=== PATIENT | female | born 1965 | race Caucasian/White ===

== ENCOUNTER 2017-01-12 11:36 | Emergency (ER) | payer OTHER ==
--- NOTE | 2017-01-12 11:59 | PHYS DOC ---
General Chief Complaint: ANKLE PROBLEM Stated Complaint: RT ANKLE PAIN Time Seen by MD: 11:44 Source: patient Exam Limitations: no limitations Problems: History of Present Illness Initial Comments Pt is 51/F to ED for work comp injury. 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 She complains of right ankle pain/swelling. No numbness/tingling/weakness/radiating sx. Onset: this morning Severity: moderate Pain/Injury Location: right ankle Method of Injury: fell, twisted Modifying Factors: worse with jarring, worse with movement, improves with rest Allergies: Coded Allergies: No Known Drug Allergies (Unverified , 01/12/17) Past Medical History Medical History: no pertinent history Surgical History: noncontributory Social History Smoker: non-smoker Alcohol: none Drugs: none Review of Systems Constitutional: denies chills, denies diaphoresis, denies fever Respiratory: denies cough, denies shortness of breath Cardiovascular: denies chest pain, denies palpitations Gastrointestinal: denies nausea, denies vomiting Musculoskeletal: see HPI Psychiatric/Neurological: denies numbness, denies paresthesia, denies tingling , denies weakness Physical Exam General Appearance: WD/WN, no apparent distress HEENT: normal ENT inspection Neck: non-tender, supple Cardiovascular/Respiratory: normal peripheral pulses, no respiratory distress Back: no CVA tenderness, no vertebral tenderness Ankles: right ankle other (mild lateral swelling, TTP distal fibula/ATF ligament, negative drawer, no palpable bony deformity, tendons intact, extremity is NV intact) Neurologic/Tendon: normal sensation, normal motor functions, normal tendon functions, responds to pain, no evidence tendon injury Psychiatric: alert, oriented x 3 Skin: normal color, warm/dry Orders, Labs, Meds R ankle: no acute osseous abnormality Departure Time of Disposition: 12:37 Disposition: 01 HOME, SELF-CARE Diagnosis: Right ankle sprain, mechanical fall Condition: GOOD Patient Instructions: Ankle Sprain, Acute, with Phase I Rehab-SportsMed, RICE - Routine Care for Injuries, [id number] Additional Instructions: RICE, see handout. OTC ibuprofen for baseline pain. Off work tomorrow. Activity as tolerated. Rx: tylenol with codeine #10 Follow up with your doctor next week for recheck. Follow up with your employer regarding work comp. Return to ED with new or changing symptoms. VANNA SALGUERO DO Jan 12, 2017 11:59
--- NOTE | 2017-01-12 12:15 | RAD ---
Right ankle, 3 views, 01/12/2017: History: Fall, ankle pain No fracture or dislocation is identified. The soft tissues are unremarkable. IMPRESSION: No acute right ankle abnormality is detected.
[2017-01-12] MEDS ORDERED: ACET-704 PO (12:36)
[2017-01-12 12:45] VITALS: BP 149/93
== END 2017-01-12 12:45 | disposition home or self-care (01) ==
LOC: ER 11:36
DX: S93.401A Sprain of unspecified ligament of right ankle, initial encounter (principal); X58.XXXA Exposure to other specified factors, initial encounter; Y93.89 Activity, other specified; Y99.0 Civilian activity done for income or pay; Y92.89 Other specified places as the place of occurrence of the external cause
CPT/HCPCS: 73610; 99284